=== PATIENT | male | born 1950 ===

== ENCOUNTER 2017-10-21 10:55 | Outpatient (CLI) | payer OTHER | END 2017-10-21 15:36 | disposition home or self-care (01) | LOC: MRI 10:55 | DX: M25.562 Pain in left knee (principal); M43.10 Spondylolisthesis, site unspecified | CPT/HCPCS: 72158; 73721; A9579; 73718 ==

== ENCOUNTER → 2017-10-21 | Outpatient (CLI) | payer OTHER | END | disposition home or self-care (01) | LOC: RAD 11:20 | DX: M25.561 Pain in right knee (principal); M25.562 Pain in left knee ==